=== PATIENT | male | born 1985 | race Caucasian/White ===

== ENCOUNTER 2018-07-11 08:00 | Emergency (ER) | payer SELFPAY ==
[~2018-07-11] VITALS: Ht 182.9 cm; Wt 112.7 kg
[2018-07-11 08:01] VITALS: BP 128/59; PULSE 66; TEMP 97.3
[2018-07-11] MEDS ORDERED: CEPHALEXIN500 M1 PO (08:16)
== END 2018-07-11 08:33 | disposition home or self-care (01) ==
LOC: COL.ER 08:00
DX: S80.812A Abrasion, left lower leg, initial encounter (principal); L08.9 Local infection of the skin and subcutaneous tissue, unspecified; F17.210 Nicotine dependence, cigarettes, uncomplicated; V29.9XXA Motorcycle rider (driver) (passenger) injured in unspecified traffic accident, initial encounter